=== PATIENT | female | born 1975 | race American Indian/Alaskan Native ===

== ENCOUNTER 2017-02-03 07:49 | Emergency (ER) | payer MEDICAID ==
[2017-02-03 08:04] VITALS: BP 141/95
[2017-02-03 08:19] LABS: Bacteria,Urine 2+ /HPF (Negative); Bilirubin,Urine NEG (Negative); Blood,Urine LG (Negative); Ketones,Urine NEG (Negative); Leukocyte Esterase,Urine LG (Negative); Mucus,Urine 2+ /HPF; Nitrite,Urine POS (Negative); Urobilinogen,Urine < 2.0 mg/dL (<2.0)
[2017-02-03 08:22] LABS: WBC,Urine > 182.0 /HPF (0.0-6.0)
[2017-02-03] MEDS ORDERED: TYLENOL PO ONE (11:59)
--- NOTE | 2017-02-03 12:00 | Emergency Department Report ---
HPI - General Chief Complaint: Urogenital-Female - HPI HPI: 41-year-old -[place] female with past medical history of CVA 2009 without any residual effects. Comes in today for complaint of hematuria and dysuria. Patient also complains of a headache that she had for 3 weeks that started behind her right eye. Patient denies any fever chills or change in vision and nausea vomiting. No weakness and no unsteady gait. ED Past Medical Hx - Past Medical History Previous Medical History?: Yes Hx CVA: Yes (2009) - Surgical History Past Surgical History?: Yes Additional Surgical History: ectopic , lypoma removed from back - Social History Smoking Status: Current Every Day Smoker Substance Use Type: Alcohol - Medications Home Medications: Home Medications Medication Instructions Recorded Confirmed Last Taken Type Ibuprofen [Motrin 800 MG tab] 800 mg PO Q8HR PRN #30 tablet 06/18/15 Unknown Rx Cyclobenzaprine [Flexeril] 10 mg PO TID PRN #15 tablet 08/22/16 Unknown Rx Ibuprofen [Motrin] 800 mg PO Q8HR PRN #15 tablet 08/22/16 Unknown Rx Butalbit/Acetamin/Caff/Codeine 1 cap PO Q6HR PRN #20 cap 02/03/17 Unknown Rx [Fioricet/Codeine [id number]] Nitrofurantoin [place]/M-Cryst 100 mg PO Q12HR #14 capsule 02/03/17 Unknown Rx [Macrobid CAP] Phenazopyridine [Pyridium] 100 mg PO TID #30 tab 02/03/17 Unknown Rx ED Review of Systems ROS: Stated complaint: BLOOD IN URINE/HEADACHE Other details as noted in HPI Constitutional: denies: chills, fever Eyes: eye pain ENT: denies: ear pain, throat pain Respiratory: denies: cough, shortness of breath, wheezing Cardiovascular: denies: chest pain, palpitations Gastrointestinal: denies: abdominal pain, nausea, diarrhea Genitourinary: dysuria, hematuria Musculoskeletal: denies: back pain, joint swelling, arthralgia Skin: denies: rash, lesions Physical Exam - Physical Exam Vital Signs: Vital Signs 02/03/17 07:55 Temperature 97.6 F Pulse Rate 89 Respiratory 18 Rate Blood Pressure 141/95 O2 Sat by Pulse 100 Oximetry Physical Exam: GENERAL: Alert and oriented x3, no apparent distress, Normal Gait, atraumatic. HEAD: Head is normocephalic and a-traumatic. ABDOMEN: No organomegaly was noted,Positive bowel sounds, soft, and non- distended. . Nontender to palpation on all Quadrants, NO CVA tenderness. Suprapubic tenderness NEUROLOGIC: No focal Deficit, Cranial nerves II through XII are grossly intact. No loss of sensation, No facial droop, Negative rhomberg. PSYCHIATRIC: Mood is congruent with affect, SKIN: Warm and dry, No lesions, No ulceration or induration present ED Course Vital Signs 02/03/17 07:55 Temperature 97.6 F Pulse Rate 89 Respiratory 18 Rate Blood Pressure 141/95 O2 Sat by Pulse 100 Oximetry Critical care attestation.: If time is entered above; I have spent that time in minutes in the direct care of this critically ill patient, excluding procedure time. ED Disposition Clinical Impression: UTI (urinary tract infection) Qualifiers: Urinary tract infection type: site unspecified Hematuria presence: with hematuria Qualified Code(s): N39.0 - Urinary tract infection, site not specified ; R31.9 - Hematuria, unspecified Disposition: DISCHARGED TO HOME OR SELFCARE Is pt being admited?: No Does the pt Need Aspirin: No Condition: Stable Instructions: Urinary Tract Infection in Women (ED), Dysuria (ED) Additional Instructions: Take antibiotic as prescribed. Encourage you to drink plenty of fluids and voiding after intercourse. Follow-up the primary care provider for chronic disease management. Prescriptions: Butalbit/Acetamin/Caff/Codeine [Fioricet/Codeine [id number]] 1 cap PO Q6HR PRN #20 cap PRN Reason: pain/headache Nitrofurantoin [place]/M-Cryst [Macrobid CAP] 100 mg PO Q12HR #14 capsule Phenazopyridine [Pyridium] 100 mg PO TID #30 tab Referrals: PRIMARY CARE,MD [Primary Care Provider] - 3-5 Days Forms: Work/School Release Form(ED)
== END 2017-02-03 12:21 | disposition home or self-care (01) ==
LOC: ED 07:49
DX: N39.0 Urinary tract infection, site not specified (principal); F17.200 Nicotine dependence, unspecified, uncomplicated; Z86.73 Personal history of transient ischemic attack (TIA), and cerebral infarction without residual deficits
CPT/HCPCS: 81001; 99283

== ENCOUNTER 2017-03-26 06:53 | Emergency (ER) | payer BC, MEDICAID ==
[2017-03-26 09:17] LABS: Bilirubin,Urine NEG (Negative); Blood,Urine NEG (Negative); Ketones,Urine NEG (Negative); Leukocyte Esterase,Urine NEG (Negative); Mucus,Urine 2+ /HPF; Nitrite,Urine NEG (Negative); Protein,Urine <15 mg/dL mg/dL (Negative); Urobilinogen,Urine < 2.0 mg/dL (<2.0)
[2017-03-26 10:09] LABS: Basophils % (Auto) 0.3 % (0.0-1.8); Eosinophils % (Auto) 1.1 % (0.0-4.3); Hematocrit 39.3 % (30.3-42.9); Hemoglobin 13.1 gm/dl (10.1-14.3); Mean Corpuscular HGB Conc 33 % (30-34); Mean Corpuscular Hemoglobin 33 pg (28-32); Mean Corpuscular Volume 98 fl (79-97); Platelet Count 265 K/mm3 (140-440); Red Blood Count 4.02 M/mm3 (3.65-5.03); Red Cell Distribution Width 15.1 % (13.2-15.2); White Blood Count 8.5 K/mm3 (4.5-11.0)
[2017-03-26 10:19] LABS: Anion Gap 14 mmol/L; BUN/Creatinine Ratio 21.66; Blood Urea Nitrogen 13 mg/dL (7-17); Calcium 8.4 mg/dL (8.4-10.2); Carbon Dioxide 27 mmol/L (22-30); Chloride 104.5 mmol/L (98-107); Glucose 92 mg/dL (65-100); Potassium 3.1 mmol/L (3.6-5.0); Sodium 142 mmol/L (137-145)
[2017-03-26] MEDS ORDERED: K-DUR PO ONE (11:01)
[2017-03-26] MEDS ORDERED: MOTRIN PO ONE (11:15)
[2017-03-26 11:23] VITALS: BP 122/79
--- NOTE | 2017-03-26 12:04 | Emergency Department Report ---
ED Female HPI - General Chief complaint: Urogenital-Female Stated complaint: ABD PAIN Time Seen by Provider: 03/26/17 10:10 Source: patient Mode of arrival: Ambulatory Limitations: No Limitations - History of Present Illness Initial comments: 41-year-old female with history of multiple fibroids status post myomectomy on 01/02/2017 presenting today because of pelvic pain during her period. Patient states that she has not had too much in terms of pain or heavy bleeding with her cycles since the myomectomy but the pain and bleeding has recurred this time the cycle. The menstruation came on at the expected time, however was heavier and more painful. She has no dysuria, nausea, vomiting, diarrhea or any other symptoms. Took some Motrin last night which seemed to help her symptoms significantly. Had an ultrasound 1 month ago that did show multiple fibroids were present in her uterus. Has an GENERAL PRACTITIONER she follows up with [facility]. - Related Data Previous Rx's Medication Instructions Recorded Last Taken Type Ibuprofen [Motrin] 600 mg PO Q8H PRN #16 tablet 03/26/17 Unknown Rx Allergies Allergy/AdvReac Type Severity Reaction Status Date / Time Sulfa (Sulfonamide Allergy Hives Verified 03/26/17 08:19 Antibiotics) ED Review of Systems ROS: Stated complaint: ABD PAIN Other details as noted in HPI Comment: All other systems reviewed and negative Constitutional: denies: chills, fever Respiratory: denies: cough, shortness of breath Cardiovascular: denies: chest pain Gastrointestinal: denies: abdominal pain, nausea, vomiting, diarrhea Genitourinary: denies: urgency, dysuria, frequency, discharge Neurological: denies: weakness Psychiatric: denies: anxiety ED Past Medical Hx - Past Medical History Hx CVA: Yes (2009) - Surgical History Additional Surgical History: ectopic , lypoma removed from back. myomectomy - Social History Smoking Status: Current Every Day Smoker Substance Use Type: Alcohol - Medications Home Medications: Home Medications Medication Instructions Recorded Confirmed Last Taken Type Ibuprofen [Motrin] 600 mg PO Q8H PRN #16 tablet 03/26/17 Unknown Rx ED Physical Exam - General Limitations: No Limitations General appearance: alert, in no apparent distress - Head Head exam: Present: atraumatic - Eye Eye exam: Present: normal appearance - Neck Neck exam: Present: normal inspection - Respiratory Respiratory exam: Present: normal lung sounds bilaterally. Absent: respiratory distress - Cardiovascular Cardiovascular Exam: Present: regular rate, normal rhythm - GI/Abdominal GI/Abdominal exam: Present: soft. Absent: distended, tenderness - External exam: Present: normal external exam, other (speculum exam revealed a small amount of blood in the vaginal vault, cervix did not appear inflamed, no CMT, moderate tenderness in the suprapubic area, no adnexal tenderness). Absent : lesions - Neurological Exam Neurological exam: Present: alert, oriented X3 - Psychiatric Psychiatric exam: Present: normal affect - Skin Skin exam: Present: intact ED Course Vital Signs 03/26/17 03/26/17 03/26/17 08:22 11:01 11:23 Temperature 98.2 F 98.1 F Pulse Rate 79 70 Respiratory 16 18 18 Rate Blood Pressure 144/99 Blood Pressure 122/79 [Right] O2 Sat by Pulse 100 100 100 Oximetry ED Medical Decision Making - Lab Data Result diagrams: 03/26/17 09:50 03/26/17 09:50 - Medical Decision Making Labs reveal mild hypokalemia, potassium ordered, Motrin ordered for pain upreg negative hgb normal Patient also requested STD testing, recent unprotected sex with a nonmonagomous partner without known hx of stds Critical care attestation.: If time is entered above; I have spent that time in minutes in the direct care of this critically ill patient, excluding procedure time. ED Disposition Clinical Impression: Pelvic pain Disposition: DISCHARGED TO HOME OR SELFCARE Is pt being admited?: No Does the pt Need Aspirin: No Condition: Stable Instructions: Uterine Fibroids (ED) Additional Instructions: Please follow up with your GENERAL PRACTITIONER in the next 3-5 days. Return to the ER if your symptoms worsen or you develop new symptoms. Prescriptions: Ibuprofen [Motrin] 600 mg PO Q8H PRN #16 tablet PRN Reason: Pain Referrals: PRIMARY CARE,MD [Primary Care Provider] - 3-5 Days Time of Disposition: 12:17
== END 2017-03-26 12:33 | disposition home or self-care (01) ==
LOC: ED 06:53
DX: R10.2 Pelvic and perineal pain (principal); I63.9 Cerebral infarction, unspecified; F17.200 Nicotine dependence, unspecified, uncomplicated; Z88.2 Allergy status to sulfonamides
CPT/HCPCS: 36415; 80048; 81001; 81025; 85025; 87210; 87591; 99284

== ENCOUNTER 2018-04-08 11:08 | Emergency (ER) | payer BC, MEDICAID ==
[2018-04-08 11:14] VITALS: BP 145/95
--- NOTE | 2018-04-08 14:11 | Emergency Department Report ---
ED Back Pain/Injury HPI - General Chief Complaint: Back Pain/Injury Stated Complaint: BACK PAIN Time Seen by Provider: 04/08/18 13:28 Source: patient Limitations: No Limitations - History of Present Illness Initial Comments: This is a 42-year-old -[place] female with low back pain for 2 weeks that is worse on the left. Patient reports pain that feel like a ball is tight on left flank. Pain is intermittent. It sometimes feels like squeezing and left flank. She is currently not taking anything for symptoms. She has applied heat to the area intermittently with no improvement of symptoms. Denies recent injury, frequency, urgency, discharge, fall, snap or pop, and numbness or tingling. MD Complaint: back pain (left flank) -: week(s) (2 weeks) Similar Symptoms Previously: No Place: home Radiation: none Severity: moderate Severity scale (0 -10): 6 Quality: aching Consistency: intermittent Worsens With: movement, sitting upright Context: unknown Associated Symptoms: denies other symptoms Treatments Prior to Arrival: heat therapy - Related Data Previous Rx's Medication Instructions Recorded Last Taken Type Ibuprofen [Motrin] 600 mg PO Q8H PRN #16 tablet 03/26/17 Unknown Rx Cyclobenzaprine HCl [Flexeril 5 MG 5 mg PO TID #20 tab 04/08/18 Unknown Rx TAB] Naproxen [Naprosyn] 500 mg PO TID PRN #20 tablet 04/08/18 Unknown Rx Allergies Allergy/AdvReac Type Severity Reaction Status Date / Time Sulfa (Sulfonamide Allergy Hives Verified 04/08/18 11:11 Antibiotics) ED Review of Systems ROS: Stated complaint: BACK PAIN Other details as noted in HPI Constitutional: denies: chills, fever Respiratory: denies: cough, shortness of breath, wheezing Cardiovascular: denies: chest pain, palpitations Gastrointestinal: denies: abdominal pain, nausea, vomiting, diarrhea Musculoskeletal: back pain (left flank pain). denies: joint swelling, arthralgia Skin: denies: rash, lesions Neurological: denies: headache, weakness, paresthesias Psychiatric: denies: anxiety, depression ED Back Pain Physical Exam - Exam General: Vital signs noted. No distress. Alert and acting appropriately. Back/Abdomen: Yes Flank Tenderness (left flank on percussion, muscle spasm on above left flank), No Abdominal Tenderness, No Perithoracic Tenderness, No Perilumbar Tenderness, No Sacroiliac Tenderness, No Straight Leg Raise Pain Neuro: Yes Normal Sensation, Yes Normal DTR's, Yes Normal Gait, No Motor Weakness ED Course Vital Signs 04/08/18 11:12 Temperature 98.5 F Pulse Rate 78 Respiratory 18 Rate Blood Pressure 145/95 O2 Sat by Pulse 98 Oximetry Ed Back Pain Tests - Tests Tests: Normal UA ED Medical Decision Making - Medical Decision Making 42 y.o. female that presents with left flank pain for 2 weeks. Patient examined by me and in no acute distress. Given [place] 7.5/325 mg po once in ER. Vitals stable. Obtained UA and normal. Physical assessment findings of muscle spasm on the left flank. Start ibuprofen and flexeril. Discharged home stable. Follow- up with primary care in 2-3 days. Critical care attestation.: If time is entered above; I have spent that time in minutes in the direct care of this critically ill patient, excluding procedure time. ED Disposition Clinical Impression: Muscle spasm, Left flank pain Disposition: TO HOME OR SELFCARE Is pt being admited?: No Does the pt Need Aspirin: No Condition: Stable Instructions: Muscle Spasm (ED), Arthralgia (ED) Additional Instructions: Take ibuprofen and flexeril as needed for pain control. Don't take flexeril while driving or operating heavy machinery, may cause drowsiness. Follow up with primary care provider in 24-72 hours. Return to ER if chest pain unresolved, shortness of breath, or difficulty breathing. Prescriptions: Cyclobenzaprine HCl [Flexeril 5 MG TAB] 5 mg PO TID #20 tab Naproxen [Naprosyn] 500 mg PO TID PRN #20 tablet PRN Reason: Pain Referrals: BOB JANE MD [Staff Physician] - 3-5 Days [facility] [Provider Group] - 3-5 Days Time of Disposition: 15:20 Print Language: [place]IN[place]
[2018-04-08 14:26] LABS: Bilirubin,Urine NEG (Negative); Blood,Urine LG (Negative); Color,Urine Yellow (Yellow); Mucus,Urine FEW /HPF; Protein,Urine <15 mg/dL mg/dL (Negative); Urobilinogen,Urine < 2.0 mg/dL (<2.0)
== END 2018-04-08 15:36 | disposition home or self-care (01) ==
LOC: ED 11:08
DX: M62.838 Other muscle spasm (principal); R10.9 Unspecified abdominal pain; Z88.2 Allergy status to sulfonamides
CPT/HCPCS: 81001; 99283